=== PATIENT | male | born 1990 | race Caucasian/White ===

== ENCOUNTER 2024-11-03 22:02 | Emergency (ER) | payer OTHER, SELFPAY ==
[2024-11-03 22:08] VITALS: BP 134/83; PULSE 75; RESP 16; TEMP 36.6; O2SAT 100; BMI 23.6
--- NOTE | 2024-11-03 23:22 | CT_ITS ---
PROCEDURE INFORMATION: Exam: CT Abdomen And Pelvis With Contrast Exam date and time: 11/04/2024 12:22 AM Age: 33 years old Clinical indication: Abdominal pain; Additional info: Epigastric pain, nausea, vom, diarrhea, pain w/ bm TECHNIQUE: Imaging protocol: Computed tomography of the abdomen and pelvis with contrast. Radiation optimization: All CT scans at this facility use at least one of these dose optimization techniques: automated exposure control; mA and/or kV adjustment per patient size (includes targeted exams where dose is matched to clinical indication); or iterative reconstruction. Contrast material: ISOVUE; Contrast volume: 75 ml; Contrast route: IV; COMPARISON: No relevant prior studies available. FINDINGS: Lungs: Benign left basilar calcified pulmonary nodule. Liver: Mild periportal edema. No mass. Gallbladder and biliary ducts: Normal. No calcified stones. No ductal dilation. Pancreas: Normal. No ductal dilation. Spleen: Normal. No splenomegaly. Adrenal glands: Normal. No mass. Kidneys and ureters: Normal. No hydronephrosis. Stomach and bowel: Fluid-filled loops of nonobstructive small and large bowel with mucosal enhancement most pronounced in distal ileum to ascending colon. Appendix: No evidence of appendicitis. Intraperitoneal space: Small dependent pelvic free fluid collection. Vasculature: Unremarkable. No abdominal aortic aneurysm. Lymph nodes: Unremarkable. No enlarged lymph nodes. Urinary bladder: Unremarkable as visualized. Reproductive: Unremarkable as visualized. Bones/joints: Unremarkable. No acute fracture. Soft tissues: Unremarkable. IMPRESSION: 1. Diffuse enterocolitis, most pronounced along distal ileum to ascending colon, possibly viral. 2. Probable reactive, small dependent free fluid collection. 3. Mild periportal edema likely reflecting mild congestion.
[2024-11-03 23:30] LABS: Basophils # 0.1 K/mm3 (0-0.2); Basophils % 0.5 % (0.1-2.0); Eosinophils # 0.1 K/mm3 (0.0-0.4); Eosinophils % 0.9 % (0.1-12.0); Hemoglobin 14.9 g/dL (14.1-18.0); Lymphocytes # 1.6 K/mm3 (0.7-4.5); Lymphocytes % 17.4 % (10-50); Mean Corpuscular HGB Conc 33.9 g/dL (31.8-35.4); Mean Corpuscular Hemoglobin 29.9 pg (27.0-31.2); Mean Corpuscular Volume 88.2 fl (80-94); Mean Platelet Volume 9.3 fl (7.4-10.4); Monocytes # 0.7 K/mm3 (0.1-1.0); Monocytes % 7.9 % (1.7-9.3); Neutrophils # 6.8 K/mm3 (1.8-7.8); Nucleated Red Blood Cells # 0 10^3/uL; Nucleated Red Blood Cells % 0 %; Platelet Count 378 K/mm3 (142-424); Red Blood Count 4.99 M/mm3 (4.60-6.20); Red Cell Distribution Width-SD 41.9 fL; White Blood Count 9.3 K/mm3 (4.8-10.8)
[2024-11-03 23:32] LABS: Microscopic, Urine URINE MICROSCOPIC (MICROSCOPIC)
[2024-11-03 23:34] LABS: Appearance,Urine CLEAR (Clear); Bilirubin,Urine Negative (Negative); Blood, Urine TRACE-I (Negative); Glucose,Urine (UA) Negative (Negative); Ketones,Urine 2+ (Negative); Leukocyte Esterase,Urine Negative (Negative); Nitrate,Urine Negative (Negative); Protein,Urine Negative (Negative); Specific Gravity, Urine >= 1.030 (1.005-1.030); Urobilinogen,Urine 0.2 EU/dl (0.2)
[2024-11-03 23:36] LABS: Color,Urine Dark Yellow (Yellow)
[2024-11-03 23:36] LABS: INR 0.98 (0.9-1.1)
[2024-11-03 23:37] LABS: Alanine Aminotransferase 15 U/L (12-78); Albumin Level 4.7 g/dl (3.5-5.0); Albumin/Globulin Ratio 1.3 (1.1-1.8); Alkaline Phosphatase 79 U/L (38-126); Anion Gap 18.1 mEq/L (5-15); Aspartate Amino Transferase 32 U/L (17-59); Bilirubin,Total 0.9 mg/dl (0.2-1.3); Blood Urea Nitrogen 9 mg/dl (9-20); Calcium 9.2 mg/dl (8.4-10.2); Carbon Dioxide 25 mmol/L (22.0-30.0); Chloride 100 mmol/L (98-107); Creatinine Clearance Estimated 118 mL/min (50-200); Estimated Glomerular Filt Rate 98 ml/min (>60); GFR (African American) 119 ML/MIN (>60); Globulin 3.6 g/dL (1.3-3.2); Glucose 93 mg/dl (74-100); Potassium 4.1 mmoL/L (3.5-5.1); Sodium 139 mmol/L (136-145); Total Protein,Serum 8.3 g/dl (6.3-8.2)
[2024-11-03 23:42] LABS: C-Reactive Protein 10.8 mg/L (0-4)
[2024-11-03 23:55] LABS: Lactic Acid 0.6 mmol/L (0.7-2.1)
[2024-11-03 23:58] LABS: Bacteria,Urine 1+ /lpf; Calcium Oxalate Crystals,Urine Trace /lpf; Mucus,Urine 1+ /lpf; Squamous Epithelial Cell,Urine Occasional #/hpf (0-5)
[2024-11-03 23:59] LABS: Lipase 716 U/L (23-300)
[2024-11-04] MEDS: SODIUM CHLORIDE 0.9% 10ML SYR (RAD ONLY) 10 ML IV (00:30)
[2024-11-04] MEDS: IOPAMIDOL-370 (76%);100ML BOTTLE 75 ML IV (00:30)
[2024-11-04] MEDS: ONDANSETRON 4MG/2ML VIAL 4 MG IV (00:38)
[2024-11-04] MEDS: BELLADONNA ALKALOIDS 60 ML ML PO (00:38)
--- NOTE | 2024-11-04 00:42 | [facility].EDGENADL ---
Discharge Plan Disposition Patient Disposition: Home, Self-Care Condition: Good Prescriptions Prescriptions: New sucralfate 100 mg/mL suspension 10 ml PO Q6H 14 Days Qty: 560 0RF famotidine 20 mg tablet 20 mg PO BID 14 Days Qty: 28 0RF ondansetron 4 mg tablet,disintegrating 4 mg PO Q6H PRN (Reason: nausea and vomiting) Qty: 10 0RF Referrals Follow up/Referrals: Avel Nicolas II, MD [Staff Physician] - See instructions (hx crohns, ulcers, has pancreatitis and PUD type pain) Mario Rosenberg APRN [Primary Care Provider] - See instructions Activity Restrictions/Add. Instructions Additional Instructions/Restrictions: You were evaluated in the ER and are believed to be appropriate for discharge at this time. Take the prescribed medications as directed. Call the GI office and make an appointment for outpatient follow-up. Eat a bland diet starting with clear liquids like Pedialyte and broth. If you are tolerating this well, gradually advance to bananas, rice, applesauce, toast (brat diet), then gradually continue advancing your diet as tolerated. If you have a bowel movement, you can bring a stool sample to the ER and we will test it for infectious diarrhea. Make an appointment with your primary care doctor for reevaluation in a few days. Return to the ER with new, worsening, or otherwise concerning symptoms. Clinical Impressions Clinical Impression: Pancreatitis, Enterocolitis Instructions Patient Instructions: Acute Pancreatitis Print Language Print Language: [place] Discharge ED Provider: Shaq Esteves Adult HPI General Chief complaint: Abdominal Pain Stated complaint: abdominal pain blood in stool Time Seen by Provider: 11/03/24 23:05 Mode of Arrival: Ambulatory Source of Information: Patient Description of Symptoms (Recalled from ER Triage Doc. by RN): Pt presents for evaluation of generalized middle abdominal pain that started 1 week ago. Pt states it is cramping in nature. He has had n/v. and has lost 7 pounds. Pt states he was passing bright red blood in his stool and then when he threw up there was also blood. History of Present Illness HPI narrative: 33-year-old male presents to the ER with generalized abdominal pain for the last week. Patient states he has had approximately 3 weeks of loose stools but they have been brown, nonbloody, nonmelanotic. He states 1 week ago he started having upper abdominal pain with associated nausea and vomiting. He states he has worse pain when he eats. He does have a history of previous ulcers but is not on medication for it. Patient has celiac disease but no known gluten exposures. Patient states when he vomited once in the last 24 hours he had small flecks of blood mixed in with the vomit, he is not vomiting clots or jordan blood. He has no chest pain or difficulty breathing. He states when he wiped there was small blood after having diarrhea and also a few small streaks of blood on the outside of the stool recently. He has no swelling, headaches, dizziness, numbness, tingling, weakness, fevers, or chills. He reports unintentional weight loss. He denies alcohol use. Related Data Previous Rx's ?Medication ?Instructions ?Recorded famotidine 20 mg tablet 20 mg PO BID 2 weeks #28 tabs 11/04/24 ondansetron 4 mg disintegrating 4 mg PO Q6H PRN nausea and 11/04/24 tablet vomiting #10 tabs sucralfate 100 mg/mL oral 10 ml PO Q6H 2 weeks #560 mL 11/04/24 suspension Allergies Allergy/AdvReac Type Severity Reaction Status Date / Time No Known Allergies Allergy Verified 11/03/24 22:12 [facility] Disclaimer: The information contained in this section may have been updated after the patient was seen, as this information can be updated by other users. Social History Smoking Status: Former smoker alcohol intake: never current occupational status: other Travel in the last 8 weeks: None ROS Obtained: Yes Systems reviewed as appropriate & no additional complaints except as documented Per HPI Physical Exam General General appearance: alert and in no apparent distress Head Head exam: atraumatic and normocephalic Eye Eye exam: Present PERRL and EOMI ENT ENT exam: Present mucous membranes moist Neck Neck exam: Present normal inspection and full ROM Chest Chest inspection: Present symmetric chest wall rise Respiratory Respiratory exam: Present normal lung sounds bilaterally; Absent respiratory distress, wheezes or stridor Cardiovascular Cardiovascular exam: Present regular rate and normal rhythm Abdominal Exam Abdominal exam: Present soft and tenderness (Mild epigastric tenderness as well as mild suprapubic tenderness); Absent distention, guarding or rebound Extremities Exam Extremities exam: Present full ROM; Absent edema Neurological Exam Neurological exam: Present alert and oriented X3; Absent motor sensory deficit Psychiatric Psychiatric exam: Present normal affect and normal mood Skin Skin exam: Present warm and dry Medical Decision Making Medical Records Screening: Per USPSTF and CDC recommendations, given the prevalence of disease in our region, it is our hospital?s policy to screen for HIV and viral Hepatitis for all patients aged 18 and over and those with ongoing risk factors. [place] Inquiry Pt receiving controlled substance: No Vital Signs: 11/03/24 22:08 11/04/24 01:34 Temperature 98 F 98.4 F Temperature Source Oral Oral Pulse Rate 52 L Pulse Rate [Right] 75 Respiratory Rate 16 20 Blood Pressure 118/69 Blood Pressure [Right Arm] 134/83 Blood Pressure Mean [Right Arm] 100 Blood Pressure Source Automatic Cuff Blood Pressure Source [Right Arm] Automatic Cuff Blood Pressure Position Sitting Blood Pressure Position [Right Arm] Sitting 02 Sat by Pulse Oximetry 100 96 Oxygen Delivery Method Room Air Lab Data Lab Results 11/03/24 22:17: Urine Color Dark yellow, Urine Appearance Clear, Urine pH 6.0, Ur Specific [place] >= 1.030, Urine Protein Negative, Urine Glucose (UA) Negative, Urine Ketones 2+, Urine Blood Trace-i, Urine Nitrate Negative, Urine Bilirubin Negative, Urine Urobilinogen 0.2, Ur Leukocyte Esterase Negative, Urine RBC 3-5, Urine WBC 3-5, Ur Squamous Epith Cells Occasional, Calcium Oxalate Crystal Trace, Urine Bacteria 1+, Urine Mucus 1+ 11/03/24 22:27: WBC 9.3, RBC 4.99, Hgb 14.9, Hct 44.0, MCV 88.2, MCH 29.9, MCHC 33.9, RDW 13.0, Plt Count 378, MPV 9.3, Neut % (Auto) 73.0, Lymph % (Auto) 17.4, [place] % (Auto) 7.9, Eos % (Auto) 0.9, Baso % (Auto) 0.5, Neut # (Auto) 6.8, Lymph # (Auto) 1.6, [place] # (Auto) 0.7, Eos # (Auto) 0.1, Baso # (Auto) 0.1, ESR 13, PT 11.0, INR 0.98, Sodium 139, Potassium 4.1, Chloride 100, Carbon Dioxide 25, Anion Gap 18.1 H, BUN 9, Creatinine 0.90, Estimated Creat Clear 118, Estimated GFR 98, Est GFR ( Amer) 119, Glucose 93, Calcium 9.2, Total Bilirubin 0.9, AST 32, ALT 15, Alkaline Phosphatase 79, C-Reactive Protein 10.8 H, Total Protein 8.3 H, Albumin 4.7, Globulin 3.6 H, Albumin/Globulin Ratio 1.3, Lipase 716 H 11/03/24 23:37: Lactate 0.6 L 11/03/24 22:27 11/03/24 22:27 Orders (Tests/Meds): ED MEDICATIONS Generic Name Dose Route Start Last Admin Trade Name Freq PRN Reason Stop Dose Admin Sodium Chloride 10 ml 11/04/24 00:29 11/04/24 00:30 Sodium Chloride 0.9% 10ml Syr (Rad Only) IV 12/04/24 00:28 10 ml NEEDED PRN Administration Maintain IV Site Discontinued Medications Generic Name Dose Route Start Last Admin Trade Name Freq PRN Reason Stop Dose Admin Belladonna Alkaloids 60 ml 11/03/24 23:22 11/04/24 00:38 Belladonna Alkaloids 60 Ml Ml PO 11/03/24 23:23 60 ml ONCE ONE Administration Lactated Ringer's 1,000 mls @ 999 mls/hr 11/03/24 23:22 11/04/24 00:54 Lactated Ringer's 1000 Ml Bag IV 11/04/24 00:22 999 mls/hr .Q1H1M ONE Administration Iopamidol 75 ml 11/04/24 00:29 11/04/24 00:30 Iopamidol-370 (76%);100ml Bottle IV 11/04/24 00:30 75 ml ONCE ONE Administration Ondansetron HCl 4 mg 11/03/24 23:22 11/04/24 00:38 Ondansetron 4mg/2ml Vial IV 11/03/24 23:23 4 mg ONCE ONE Administration ORDERS Category Date Time Status CT abdomen pelvis w con Stat Cat Scan 11/03/24 23:22 Completed C-Reactive Protein Stat Lab 11/03/24 22:27 Completed Complete Blood Count Auto Diff Stat Lab 11/03/24 22:27 Completed Comprehensive Metabolic Panel Stat Lab 11/03/24 22:27 Completed Diarrhea 6-11 Panel, Cdiff PCR Stat Lab 11/03/24 23:24 Ordered Erythrocyte Sedimentation Rate Stat Lab 11/03/24 22:27 Completed Lactic Acid Stat Lab 11/03/24 23:37 Completed Lipase Stat Lab 11/03/24 22:27 Completed Prothrombin Time INR Stat Lab 11/03/24 22:27 Completed Urinalysis and Microscopic Stat Lab 11/03/24 22:17 Completed Medical Decision Narrative: In summary, this 33-year-old male with comorbidities described in the HPI which may not be at therapy presents to the emergency department today with abdominal pain, nausea, vomiting, diarrhea. On initial evaluation patient is hemodynamically stable, afebrile, overall he is well-appearing but does have some tenderness to palpation in the mid epigastric region as well as the suprapubic area without rebound or guarding. Differential diagnosis includes but is not limited to viral syndrome, colitis, pancreatitis, patient has a history of ulcers so I considered this as well, also considered celiac flare/gluten exposure, electrolyte abnormality, dehydration, urinary tract infection, diverticulitis, bowel obstruction, others. Based on these concerns, I ordered serum labs, CT imaging, urine studies. I ordered diarrhea panel but patient was not able to provide a sample while in the ER. Patient declined pain medication. He received Zofran and IV fluids as well as GI cocktail. He reports he had instant relief after the GI cocktail was administered. Labs personally reviewed demonstrate normal CBC, normal PT/INR, CMP nonactionable, patient has elevated lipase at 716 concerning for pancreatitis, his CRP is only slightly elevated at 10.8. CT abdomen pelvis personally interpreted does not demonstrate bowel obstruction, no evidence of cholelithiasis or cholecystitis. See radiology read for final interpretation. On reassessment patient continues to be stable and resting comfortably. UA negative for signs of infection. Patient was given water which she was able to tolerate. His pain is very well-managed at this time. I discussed the option of admission for pancreatitis, however he would prefer to attempt to manage this outpatient which I believe is reasonable at this time. With his history of ulcers and relief with GI cocktail I did prescribe famotidine and sucralfate, I also prescribed Zofran for nausea management. Patient was given instructions on clear liquids, bland diet, gradual advancement of diet for pancreatitis. He was also referred to GI for outpatient management. Patient was given instructions on symptomatic management, follow up instructions, and return precautions for the emergency department. Patient indicated understanding and was discharged in stable condition. Critical Care Critical Care Time Critical Care Time: No
[2024-11-04] MEDS: LACTATED RINGERS 1000ML 1,000 ML 999 ML IV (00:54)
[2024-11-04 01:08] LABS: Erythrocyte Sedimentation Rate 13 mm/hr (0-15)
[2024-11-04 01:34] VITALS: BP 118/69; PULSE 52; RESP 20; TEMP 36.9; O2SAT 96
--- NOTE | 2024-11-04 02:12 | PC.NURSE ---
IV fluids complete Pt drinking water without difficulty
[2024-11-04 02:27] VITALS: BP 116/70; PULSE 80; RESP 16; TEMP 36.7; O2SAT 96
== END 2024-11-04 02:32 | disposition home or self-care (01) ==
PROVIDERS: Emergency Provider Emergency Medicine; PCP Nurse Practitioner Family
DX: R10.84 Generalized abdominal pain (principal); K85.90 Acute pancreatitis without necrosis or infection, unspecified; K52.9 Noninfective gastroenteritis and colitis, unspecified; R11.2 Nausea with vomiting, unspecified
CPT/HCPCS: 74177; 80053; 81001; 83605; 83690; 85025; 85610; 85651; 86140; 96361; 96374; 99285; J2405; J7120; Q9967